=== PATIENT | male | born 1935 | race Caucasian/White ===

== ENCOUNTER → 2019-03-08 | Outpatient (CLI) | payer MEDICARE, OTHER | LOC: WOUNDCARE 13:47 | PROVIDERS: ATTEND Surgery | DX: S61.412A Laceration without foreign body of left hand, initial encounter (principal); I96 Gangrene, not elsewhere classified | CPT/HCPCS: 99213 ==

== ENCOUNTER → 2019-03-14 | Outpatient (CLI) | payer MEDICARE, OTHER | LOC: WOUNDCARE 12:50 | PROVIDERS: ATTEND Surgery | DX: S61.412A Laceration without foreign body of left hand, initial encounter (principal) | CPT/HCPCS: 99212 ==

== ENCOUNTER 2020-10-15 19:01 | Emergency (ER) | payer MEDICARE, OTHER ==
[2020-10-15] MEDS ORDERED: PANTOPRAZOLE 40 MG (PROTONIX) VIAL IV STA (19:39)
--- NOTE | 2020-10-15 19:48 | ED General ---
General Stated Complaint: CONGESTION | NAUSEA | NO APPETITE | SOB | GEN WEAK Source of Information: Patient, Family History of Present Illness Date Seen by Provider: Oct 15, 2020 Time Seen by Provider: 19:08 Initial Comments 85 yo male presenting with complaints of general weakness and epigastric burning pain for over a week. His family made him come get checked out tonight. He denies having anything worse or different tonight. He has not been feeling well since eating at [employer] from a local hotel last Thursday. He states his friend that he goes to eat with has similar symptoms as him and ate with him there. He denies having any fever, chills, vomiting, diarrhea, painful urination. He has had some reflux and cough. He states if he bends over the pain in his chest/epigastric area is worse and he takes an ashkan seltzer and it is improved. This has been going on for years but seemed worse in last week. He follows with cardiology because of having a fast heart beat several years ago but denies any actual heart attack or heart problems. Timing/Duration: 6-7 Days Severity: Moderate Associated Systoms: No Chest Pain; Cough; No Diaphoresis, No Fever/Chills, No Headaches; Loss of Appetite, Malaise, Nausea/Vomiting (nausea when he thinks about food but no actual vomiting); No Rash, No Seizure, No Shortness of Air, No Syncope, No Weakness Allergies and Home Medications Allergies Coded Allergies: No Known Drug Allergies (Unverified , 10/15/20) Home Medications Pantoprazole Sodium 40 Mg Tablet.dr, 40 MG PO DAILY Prescribed by: LUZ MARINA ROBERTS on 10/15/20 1287 Patient Home Medication List Home Medication List Reviewed: Yes Review of Systems Review of Systems Constitutional: No chills, No fever; malaise EENTM: nose congestion Respiratory: cough (mild fron congestion drainage and reflux) Cardiovascular: see HPI Gastrointestinal: see HPI Genitourinary: no symptoms reported Musculoskeletal: no symptoms reported Skin: no symptoms reported Psychiatric/Neurological: Anxiety, Depressed Hematologic/Lymphatic: No Symptoms Reported Past Oxdnokn-Kwsv[place]-Esbglg Hx Past Medical History Respiratory: No Cardiac: Yes (history of fast heart rate) Neurological: No Genitourinary: No Gastrointestinal: Yes Gastroesophageal Reflux Physical Exam Vital Signs Vital Signs - First Documented 10/15/20 19:10 Temp 36.3 Pulse 97 Resp 16 B/P (MAP) 126/66 (86) Pulse Ox 98 O2 Delivery Room Air Capillary Refill : Height, Weight, BMI Height: '" Weight: lbs. oz. kg; BMI Method: General Appearance: No Apparent Distress, WD/WN HEENT: PERRL/EOMI, Pharynx Normal Neck: Full Range of Motion, Normal Inspection, Supple Respiratory: Chest Non Tender, Lungs Clear, Normal Breath Sounds, No Accessory Muscle Use, No Respiratory Distress Cardiovascular: Regular Rate, Rhythm, Normal Peripheral Pulses Gastrointestinal: Normal Bowel Sounds, No Pulsatile Mass, Non Tender, Soft Rectal: Deferred Extremity: Normal Capillary Refill, Normal Inspection, No Pedal Edema Neurologic/Psychiatric: Alert, Oriented x3, multiple wire sawyer II-XII Norm as Tested Skin: Normal Color, Warm/Dry Progress/Results/Core Measures Suspected Sepsis SIRS Temperature: Pulse: Respiratory Rate: Laboratory Tests 10/15/20 19:45: White Blood Count 3.4L Blood Pressure / Mean: Laboratory Tests 10/15/20 19:45: Creatinine 0.99, Platelet Count 58L, Total Bilirubin 0.6 Results/Orders Lab Results Laboratory Tests Test 10/15/20 19:19 10/15/20 19:45 Range/Units Urine Color TRELL H Urine Clarity CLEAR Urine pH 6.5 5-9 Urine Specific [place] 1.015 L 1.016-1.022 Urine Protein 1+ H NEGATIVE Urine Glucose (UA) NEGATIVE NEGATIVE Urine Ketones TRACE H NEGATIVE Urine Nitrite NEGATIVE NEGATIVE Urine Bilirubin 1+ H NEGATIVE Urine Urobilinogen 1.0 < = 1.0 MG/DL Urine Leukocyte Esterase NEGATIVE NEGATIVE Urine RBC (Auto) NEGATIVE NEGATIVE Urine RBC NONE /HPF Urine WBC 0.2 /HPF Urine Squamous Epithelial Cells 0-2 /HPF Urine Crystals NONE /LPF Urine Bacteria NEGATIVE /HPF Urine Casts PRESENT /LPF Urine Hyaline Casts 5-10 H /LPF Urine Mucus SMALL H /LPF Urine Culture Indicated NO Urine Opiates Screen NEGATIVE NEGATIVE Urine Oxycodone Screen NEGATIVE NEGATIVE Urine Methadone Screen NEGATIVE NEGATIVE Urine Propoxyphene Screen NEGATIVE NEGATIVE Urine Barbiturates Screen NEGATIVE NEGATIVE Ur Tricyclic Antidepressants Screen NEGATIVE NEGATIVE Urine Phencyclidine Screen NEGATIVE NEGATIVE Urine Amphetamines Screen NEGATIVE NEGATIVE Urine Methamphetamines Screen NEGATIVE NEGATIVE Urine Benzodiazepines Screen NEGATIVE NEGATIVE Urine Cocaine Screen NEGATIVE NEGATIVE Urine Cannabinoids Screen NEGATIVE NEGATIVE White Blood Count 3.4 L 4.3-11.0 10^3/uL Red Blood Count 4.71 4.35-5.85 10^6/uL Hemoglobin 14.5 13.3-17.7 G/DL Hematocrit 43 40-54 % Mean Corpuscular Volume 90 80-99 FL Mean Corpuscular Hemoglobin 31 25-34 PG Mean Corpuscular Hemoglobin Concent 34 32-36 G/DL Red Cell Distribution Width 13.8 10.0-14.5 % Platelet Count 58 L 130-400 10^3/uL Mean Platelet Volume 11.6 H 7.4-10.4 FL Immature Granulocyte % (Auto) 0 % Neutrophils (%) (Auto) 29 L 42-75 % Lymphocytes (%) (Auto) 58 H 12-44 % Monocytes (%) (Auto) 11 0-12 % Eosinophils (%) (Auto) 0 0-10 % Basophils (%) (Auto) 2 0-10 % Neutrophils # (Auto) 1.0 L 1.8-7.8 X 10^3 Lymphocytes # (Auto) 2.0 1.0-4.0 X 10^3 Monocytes # (Auto) 0.4 0.0-1.0 X 10^3 Eosinophils # (Auto) 0.0 0.0-0.3 10^3/uL Basophils # (Auto) 0.1 0.0-0.1 10^3/uL Immature Granulocyte # (Auto) 0.0 0.0-0.1 10^3/uL Neutrophils % (Manual) 36 % Lymphocytes % (Manual) 34 % Monocytes % (Manual) 8 % Band Neutrophils 8 % Atypical Lymphocytes 14 % Toxic Granulation 2+ Platelet Estimate DECREASED Percent Immature Platelet Fraction 9.8 H 0.0-7.6 % Blood Morphology Comment NORMAL Sodium Level 133 L 135-145 MMOL/L Potassium Level 3.6 3.6-5.0 MMOL/L Chloride Level 96 L 98-107 MMOL/L Carbon Dioxide Level 24 21-32 MMOL/L Anion Gap 13 5-14 MMOL/L Blood Urea Nitrogen 20 H 7-18 MG/DL Creatinine 0.99 0.60-1.30 MG/DL Estimat Glomerular Filtration Rate > 60 BUN/Creatinine Ratio 20 Glucose Level 89 70-105 MG/DL Calcium Level 8.7 8.5-10.1 MG/DL Corrected Calcium 8.9 8.5-10.1 MG/DL Magnesium Level 2.0 1.6-2.4 MG/DL Total Bilirubin 0.6 0.1-1.0 MG/DL Aspartate Amino Transf (AST/SGOT) 43 H 5-34 U/L Alanine Aminotransferase (ALT/SGPT) 30 0-55 U/L Alkaline Phosphatase 95 40-136 U/L Troponin I < 0.30 <0.30 NG/ML Pro-B-Type Natriuretic Peptide 742.6 H <75.0 PG/ML Total Protein 6.2 L 6.4-8.2 GM/DL Albumin 3.7 3.2-4.5 GM/DL Lipase 40 8-78 U/L Smear Scan YES My Orders Orders - LUZ MARINA ROBERTS MD Ua Culture If Indicated (10/15/20 19:12) Drug Screen Stat (Urine) (10/15/20 19:12) Cbc With Automated Diff (10/15/20 19:39) Magnesium (10/15/20 19:39) Chest 1 View Ap/Pa Only (10/15/20 19:39) Ekg Tracing (10/15/20 19:39) Comprehensive Metabolic Panel (10/15/20 19:39) Protime With Inr (10/15/20 19:39) Partial Thromboplastin Time (10/15/20 19:39) O2 (10/15/20 19:39) Monitor-Rhythm Ecg Trace Only (10/15/20 19:39) Ed Iv/Invasive Line Start (10/15/20 19:39) Lipase (10/15/20 19:39) Troponin I Fs (10/15/20 19:39) Probnp Fs (10/15/20 19:39) Pantoprazole Injection (Protonix Injecti (10/15/20 19:39) Manual Differential (10/15/20 19:45) Vital Signs/I&O 10/15/20 10/15/20 19:10 21:53 Temp 36.3 Pulse 97 88 Resp 16 16 B/P (MAP) 126/66 (86) 137/70 Pulse Ox 98 97 O2 Delivery Room Air Room Air Capillary Refill : Progress Note #1: Progress Note Check labs, CXR, ECG and try a dose of protonix for his complaint of indigestion/heartburn symptoms. Progress Note #2: Progress Note ECG without ST elevation. Labs without acute significant abnormality to account for his symptoms. Troponin negative. No infiltrate or acute process on his CXR. He did have low platelets and some atypical lymphocytes on his CBC but no priors to compare with tonight and denies active spontaneous bleeding or blood in stool/urine. Reassured pt and family. Encouraged to follow up with Dr. Motley about low platelets and gastritis. Treat with protonix for now. ECG Initial ECG Impression Date: Oct 15, 2020 Initial ECG Impression Time: 19:50 Initial ECG Rate: 85 Initial ECG Rhythm: Normal Sinus Initial ECG Comparisson: No Previous ECG Available Comment Normal sinus rhythm with a heart rate of 85 bpm. OR interval [address] elevation. QT interval 386 ms with a QTc interval 459 ms. There is no prior tracing available for comparison. Left axis deviation. Supraventricular bigeminy. Diagnostic Imaging Diagonstic Imaging: Xray Plain Films/CT/US/NM/MRI: chest Comments [facility], [place] NAME: [facility] REC#: [id number] PT STATUS: REG ER : 1935 PHYSICIAN: LUZ MARINA ROBERTS MD ADMIT DATE: 10/15/20/ER FS Signed Date of Exam:10/15/20 CHEST 1 VIEW AP/PA ONLY EXAMINATION: Chest 1 view HISTORY: Epigastric pain. Cough. COMPARISON: None available. FINDINGS: The lung volumes are normal. No focal consolidation is seen. No large pleural effusion or pneumothorax is seen. The cardiomediastinal silhouette is normal in size and contour. No acute osseous abnormality is seen. IMPRESSION: 1. No acute pleuroparenchymal process. Dictated by: Dictated on workstation # [id number] Dict: 10/15/201956 Trans: 10/15/201999 ACB [id number] Interpreted by: MARGARET ISAACS DO Electronically signed by: MARGARET ISAACS DO 10/15/201999 Departure Impression Primary Impression: Gastritis Qualified Codes: K29.50 - Unspecified chronic gastritis without bleeding Additional Impression: Thrombocytopenia Disposition: 01 HOME, SELF-CARE Condition: Stable Departure-Patient Inst. Decision time for Depature: 21:19 Referrals: GABRIELLA MOTLEY MD (PCP/Family) Primary Care Physician Patient Instructions: Gastritis ED Add. Discharge Instructions: Follow up with Dr. Motley for continued evaluation of your gastritis and stomach irritation. You also have low platelets on the testing tonight and the level was 58. Usually they are around 150 or higher. There are no old labs for comparison so unknown if this is new or old. Dr. Motley and the clinic may need to do some other testing about this. If you start having bleeding from your gums, blood in your stools or can not get bleeding to stop from a cut or scratch then return or seek medical care for further evaluation and work up. Scripts Pantoprazole Sodium (Pantoprazole Sodium) 40 Mg Tablet. 40 MG PO DAILY for gastritis for 30 Days, #30 TAB 0 Refills Prov: LUZ MARINA ROBERTS MD 10/15/20 LUZ MARINA ROBERTS MD Oct 15, 2020 19:48
--- NOTE | 2020-10-15 19:58 | Diagnostic Imaging Report ---
EXAMINATION: Chest 1 view HISTORY: Epigastric pain. Cough. COMPARISON: None available. FINDINGS: The lung volumes are normal. No focal consolidation is seen. No large pleural effusion or pneumothorax is seen. The cardiomediastinal silhouette is normal in size and contour. No acute osseous abnormality is seen. IMPRESSION: 1. No acute pleuroparenchymal process. Dictated by: Dictated on workstation # [id number]
[2020-10-15 20:19] LABS: EOSINOPHILS % (AUTO) 0 % (0-10); HEMATOCRIT 43 % (40-54); HEMOGLOBIN 14.5 G/DL (13.3-17.7); LYMPHOCYTES % (AUTO) 58 % (12-44); MEAN CORPUSCULAR HEMOGLOBIN 31 PG (25-34); MEAN CORPUSCULAR HGB CONC 34 G/DL (32-36); MEAN CORPUSCULAR VOLUME 90 FL (80-99); MEAN PLATELET VOLUME 11.6 FL (7.4-10.4); MONOCYTES % (AUTO) 11 % (0-12); NEUTROPHILS % (AUTO) 29 % (42-75); PLATELET COUNT 58 10^3/uL (130-400); WHITE BLOOD COUNT 3.4 10^3/uL (4.3-11.0)
[2020-10-15 20:20] LABS: BASOPHILS # (AUTO) 0.1 10^3/uL (0.0-0.1); BASOPHILS % (AUTO) 2 % (0-10); MONOCYTES # (AUTO) 0.4 X 10^3 (0.0-1.0)
[2020-10-15 20:24] LABS: COLOR,URINE AMBER
[2020-10-15 20:25] LABS: BILIRUBIN,URINE 1+ (NEGATIVE); CLARITY,URINE CLEAR; GLUCOSE, URINE (UA) NEGATIVE (NEGATIVE); KETONES,URINE TRACE (NEGATIVE); LEUKOCYTE ESTERASE ,URINE NEGATIVE (NEGATIVE); NITRITE,URINE NEGATIVE (NEGATIVE); PH,URINE 6.5 (5-9); PROTEIN,URINE 1+ (NEGATIVE)
[2020-10-15 20:26] LABS: BACTERIA,URINE NEGATIVE /HPF; WBC,URINE 0.2 /HPF
[2020-10-15 20:27] LABS: AMPHETAMINE SCREEN, URINE NEGATIVE (NEGATIVE); BARBITURATE SCREEN URINE NEGATIVE (NEGATIVE); BENZODIAZEPINES SCREEN URINE NEGATIVE (NEGATIVE); CANNABINOID SCREEN, URINE NEGATIVE (NEGATIVE); COCAINE SCREEN URINE NEGATIVE (NEGATIVE); METHADONE STAT NEGATIVE (NEGATIVE); METHAMPHETAMINE SCREEN URINE S NEGATIVE (NEGATIVE); OPIATE SCREEN URINE NEGATIVE (NEGATIVE); OXYCODONE STAT NEGATIVE (NEGATIVE); PROPOXYPHENE STAT NEGATIVE (NEGATIVE); TRICYCLIC ANTIDEPRESSANTS SCRE NEGATIVE (NEGATIVE)
[2020-10-15 20:28] LABS: SQUAMOUS EPITHELIAL CELL,UR 0-2 /HPF
[2020-10-15 20:40] LABS: ATYPICAL LYMPHOCYTES 14 %; BAND NEUTROPHILS 8 %; LYMPHOCYTES % (MANUAL) 34 %; MONOCYTES % (MANUAL) 8 %; NEUTROPHILS % (MANUAL) 36 %; RBC MORPH NORMAL; SMEAR SCAN COMMENT YES
[2020-10-15 20:41] LABS: TOXIC GRANULATION/VACUOLAZATIO 2+
[2020-10-15 20:42] LABS: PLATELET ESTIMATE DECREASED
[2020-10-15 20:44] LABS: BILIRUBIN,TOTAL 0.6 MG/DL (0.1-1.0); BUN/CREATININE RATIO 20; CALCIUM 8.7 MG/DL (8.5-10.1); CARBON DIOXIDE 24 MMOL/L (21-32); CHLORIDE 96 MMOL/L (98-107); CREATININE SERUM 0.99 MG/DL (0.60-1.30); GFR ESTIMATED > 60; GLUCOSE 89 MG/DL (70-105); POTASSIUM 3.6 MMOL/L (3.6-5.0); SODIUM 133 MMOL/L (135-145)
[2020-10-15 20:45] LABS: ALANINE AMINOTRANSFERASE 30 U/L (0-55); ALBUMIN 3.7 GM/DL (3.2-4.5); ALKALINE PHOSPHATASE 95 U/L (40-136); LIPASE 40 U/L (8-78); TOTAL PROTEIN 6.2 GM/DL (6.4-8.2)
[2020-10-15 21:53] VITALS: BP 137/70
[2020-10-15] MEDS ORDERED: PANT40TA52 PO (22:05)
[2020-10-16 16:11] LABS: INR 0.9 (0.8-1.4); PROTHROMBIN TIME PATIENT 12.9 SEC (12.2-14.7)
== END 2020-10-15 22:06 | disposition home or self-care (01) ==
LOC: EDUNIT# 19:01 → ER FS 19:03
DX: K29.70 Gastritis, unspecified, without bleeding (principal); D69.6 Thrombocytopenia, unspecified; K21.9 Gastro-esophageal reflux disease without esophagitis; Z79.899 Other long term (current) drug therapy
CPT/HCPCS: 36415; 71045; 80053; 80306; 81000; 83690; 83735; 83880; 84484; 85007; 85027; 85610; 85730; 93005; 93041